=== PATIENT | female | born 1990 | race Caucasian/White ===

== ENCOUNTER 2017-03-24 09:43 | Emergency (ER) | payer OTHER ==
[2017-03-24 09:49] VITALS: BP 119/62; BMI 48.0
--- NOTE | 2017-03-24 10:18 | DR.EXTPAIN ---
HPI - Time seen Time seen: 10:15 - PCP Primary Care Physician: ELI - HPI Comment HPI Comment: DIZZY, NAUSEATED AND HAVING HEADACHE. NO LOC. DID HIT HER HEAD. - Complaint/Symptoms Chief Complaint Doctor Comments: FALL PTC TO ED. RIGHT HIP, RT KNEE, AND RT FOREHEAD PAIN. Chief Complaint:: PT. STATES SHE FELL UP THE STEPS AT HER HOME, HITTING HER HEAD. PT. C/O RIGHT HIP, KNEE, AND ANKLE PAIN. PT. ALSO C/O DIZZINESS AND A MIGRAINE X 2 DAYS. NUMBNESS TO RIGHT SIDE OF FACE. NO LOC. - Nurses notes reviewed Nurses Notes Review: Yes - Source History Provided: Patient - Mode of arrival Mode of Arrival: Ambulatory - Timing Onset of Chief Complaint: 03/24/17 - Context History of: None - Associated signs and symptoms Associated Signs and Symptoms: Pain PMH - PMH Past Medical History: Yes Past Medical History: Headaches, Hypertension, Hypothyroidism Past Medical History Comment: BIPOLAR, FIBROMYALGIA Past Surgical History: Yes Surgical History: Tonsillectomy - Family History History of Family Medical Conditions: No - Social History Does patient currently use any type of tobacco product: No Have you used tobacco products in the last 12 months: No Type of Tobacco Use: None Does any household member use tobacco: No Alcohol Use: Rarely Do you use any recreational Drugs:: Yes (MARIJUANA) Lives With: Mom, Friend Lives Where: Home - infectious screening In the last 2 months have you had wt loss of >10#?: NO Have you had fever, night sweats or hemotysis?: No Have you traveled outside the country in the last 6 months?: No Isolation: Standard ROS - Review of Systems Constitutional: No Symptoms Reported Eyes: No Symptoms Reported ENTM: No Symptoms Reported Respiratoy: No Symptoms Reported Cardiovascular: No Symptoms Reported Gastrointestinal/Abdominal: No Symptoms Reported Genitourinary: No Symptoms Reported Neurological: No Symptoms Reported, Headache, Dizziness Musculoskeletal: Right, Hip, Knee Integumentary: No Symptoms Reported Hematologic/Lymphatic: No Symptoms Reported Endocrine: No Symptoms Reported All Other Systems: Reviewed and Negative PE - Vital Signs Vitals: Temperature 98 F Pulse Rate 109 Respiratory Rate 17 Blood Pressure 119/62 O2 Sat by Pulse Oximetry 97 - General Limitations: No Limitations General Appearance: Alert - Head Head Exam: Normal Inspection - Eyes Eye exam: Normal Appearance - ENT ENT Exam: Normal External Ear Exam - Chest Chest Inspection: Symmetric Chest Wall Rise - Respiratory Respiratory Exam: Normal Lung Sounds Bilat Respiratory Exam: Bilateral Clear to Auscultation - Cardiovascular Cardiovascular Exam: Regular Rate, Normal Rhythm, Normal Heart Sounds - Abdominal Exam Abdominal Exam: Normal Bowel Sounds - Extremities Extremities Exam: Tenderness (RIGHT KNEE AND HIP TENDERNESS. BALTAZAR WITH PAIN.) - Lower Extremities Neurovascular/Tendon Exam: Normal Capillary Refill Gait Exam: Observed and Normal - Back Back Exam: Normal Inspection - Neurological Neurological Exam: Alert, Oriented X3 - Psychiatric Psychiatric Exam: Normal Affect, Normal Mood - Skin Skin Exam: Erythema MDM - Differential Diagnosis Differential Diagnosis: Contusion, Fracture, Sprain Course - Treatment Treatment: SEE ORDERS. - Education/Counseling Education/Counseling: Patient, Education Educated On: Treatment, Diagnosis, Needs for Follow Up ROR - XRAY XRAY Interpreted by: Radiologist XRAY Findings: REPORT DISCUSS WITH PATIENT. - Diagnosis Discharge Problem: Right knee sprain Qualifiers: Encounter type: initial encounter Involved ligament of knee: unspecified ligament Qualified Code(s): S83.91XA - Sprain of unspecified site of right knee , initial encounter Sprain of right hip Qualifiers: Encounter type: initial encounter Qualified Code(s): S73.101A - Unspecified sprain of right hip, initial encounter Headache Qualifiers: Headache type: unspecified Headache chronicity pattern: acute headache Intractability: intractable Qualified Code(s): R51 - Headache Contusion of scalp Qualifiers: Encounter type: initial encounter Qualified Code(s): S00.03XA - Contusion of scalp, initial encounter - Discharge Plan Disposition: 01 HOME, SELF-CARE Condition: Stable Prescriptions: Cyclobenzaprine HCl [FLEXERIL 10 MG *] 10 mg PO TID PRN #20 tab PRN Reason: Ibuprofen [MOTRIN TAB 800 MG *] 800 mg PO Q8H PRN #30 tab PRN Reason: Pain/Inflammation - Follow ups/Referrals Follow ups/Referrals: DEANGELO BENITEZ [Primary Care Provider] - 3 days - Instructions Instructions: Migraine Headache, [id number], Musculoskeletal Pain, Knee Pain , [id number]
[2017-03-24] MEDS ORDERED: TORADOL 60 MG VIAL IM ONE (10:31)
[2017-03-24] MEDS ORDERED: ZOFRAN INJ 4 MG VIAL IM ONE (10:32)
[2017-03-24] MEDS ORDERED: ZOFRAN INJ 4 MG VIAL ONE (10:45)
[2017-03-24] MEDS ORDERED: TORADOL 60 MG VIAL ONE (10:45)
--- NOTE | 2017-03-24 11:01 | RAD ---
Examination: Right hip, two views History: Fell Findings: No definite fracture, dislocation or other acute process is identified in the right hip. Impression: No acute or significant findings. Reported By:
--- NOTE | 2017-03-24 11:02 | RAD ---
Examination: Right knee, three views History: Fell Findings: No definite fracture, dislocation or synovial effusion. Articular spaces are symmetric. Impression: No acute or significant findings. Reported By:
--- NOTE | 2017-03-24 11:05 | CT ---
HISTORY: Headache and head trauma. Study: CT brain without contrast Comparison: None. Technique: Multiple axial images of the brain were obtained from the skull base to the vertex without administra tion of IV contrast. Findings: No acute intraparenchymal hemorrhage or mass can be identified. No extra-axial fluid collections are seen. No alteration in the attenuation of the brain parenchyma can be identified to suggest acute o r subacute ischemic change. The ventricular system is symmetric and nondilated. The extracranial st ructures are grossly unremarkable. IMPRESSION: 1. No acute intracranial process can be identified. Reported By:
== END 2017-03-24 11:26 | disposition home or self-care (01) ==
LOC: ER 10:03
DX: S83.91XA Sprain of unspecified site of right knee, initial encounter (principal); S73.101A Unspecified sprain of right hip, initial encounter; R51 Headache; S00.03XA Contusion of scalp, initial encounter; W10.9XXA Fall (on) (from) unspecified stairs and steps, initial encounter; Y92.009 Unspecified place in unspecified non-institutional (private) residence as the place of occurrence of the external cause
CPT/HCPCS: 70450; 73501; 73560; 96372; 99282; 99283; J1885; J2405